=== PATIENT | female | born 1980 | race African-American/Black ===

== ENCOUNTER 2016-08-08 07:51 | Emergency (ER) | payer SELFPAY ==
[2016-08-08] MEDS ORDERED: ONDANSETRON 4 MG/2 ML VIAL IVP STA (08:20)
[2016-08-08] MEDS ORDERED: SODIUM CHLORIDE 0.9% 1,000 ML IV STA ×2 (08:20)
--- NOTE | 2016-08-08 08:25 | ED ---
General Adult HPI - General Chief complaint: Vaginal Bleeding Stated complaint: vaginal bleeding Time Seen by Provider: 08/08/16 08:12 Source: patient, RN notes reviewed Mode of arrival: ambulatory Limitations: no limitations - History of Present Illness Initial comments: Patient is a 36-year-old female who presents emergency room today with a chief complaint of vaginal bleeding. She states that she's gone through 3 tampons in the last hour. She states she's not due for her menstrual cycle for 1 week. She states this is much heavier bleeding than is typical for her. She admits that she does feel tired and has some lower abdominal cramping. Patient admits to an episode of nausea vomiting at work prior to arrival. Patient denies any recent fever, chills, shortness of breath, chest pain, back pain, numbness or tingling, dysuria or hematuria, constipation or diarrhea, headaches or visual changes, or any other complaints. - Related Data Home Medications Medication Instructions Recorded Confirmed No Known Home Medications [No 09/23/15 08/08/16 Known Home Medications] Allergies Allergy/AdvReac Type Severity Reaction Status Date / Time latex AdvReac Rash/Hives Verified 08/08/16 08:08 Review of Systems ROS Statement: Those systems with pertinent positive or pertinent negative responses have been documented in the HPI. ROS Other: All systems not noted in ROS Statement are negative. Past Medical History Additional Past Medical History / Comment(s): heart murmur History of Any Multi-Drug Resistant Organisms: None Reported Past Surgical History: Tubal Ligation Past Psychological History: No Psychological Hx Reported Smoking Status: Never smoker Past Alcohol Use History: Occasional Past Drug Use History: None Reported General Exam - General Exam Comments Initial Comments: General: The patient is awake and alert, in no distress, and does not appear acutely ill. Eye: Pupils are equal, round and reactive to light, extra-ocular movements are intact. No nystagmus. There is normal conjunctiva bilaterally. No signs of icterus. Ears, nose, mouth and throat: There are moist mucous membranes and no oral lesions. Neck: The neck is supple, there is no tenderness or JVD. Cardiovascular: There is a regular rate and rhythm. No murmur, rub or gallop is appreciated. Respiratory: Lungs are clear to auscultation, respirations are non-labored, breath sounds are equal. No wheezes, stridor, rales, or rhonchi. Gastrointestinal: Soft, non-distended, non-tender abdomen without masses or organomegaly noted. There is no rebound or guarding present. No CVA tenderness. Bowel sounds are unremarkable. Musculoskeletal: Normal ROM, no tenderness. Strength 5/5. Sensation intact. Pulses equal bilaterally 2+. Neurological: A&O x 3. CN II-XII intact, There are no obvious motor or sensory deficits. Coordination appears grossly intact. Speech is normal. Skin: Skin is warm and dry and no rashes or lesions are noted. Psychiatric: Cooperative, appropriate mood & affect, normal judgment. Limitations: no limitations Course Vital Signs 08/08/16 07:54 Temperature 97.7 F Pulse Rate 62 Respiratory 15 Rate Blood Pressure 133/73 O2 Sat by Pulse 100 Oximetry Medical Decision Making - Medical Decision Making Patient's ultrasound reviewed and does show thickened endometrial stripe at 1.5 cm. Patient's abdominal pain minimal in the lower abdomen. Good arterial flow both sides. Patient's labs reviewed are unremarkable. Was discussed with patient about following up with [facility]. At this time vitals stable hemoglobin stable. Patient will be discharged home. Signs and symptoms of return were discussed with the patient. Advised to return if any increase or worsening symptoms. She states understanding and is in agreement. - Lab Data Result diagrams: 08/08/16 08:50 08/08/16 08:50 Lab Results 08/08/16 08/08/16 08/08/16 Range/Units 08:40 08:40 08:50 WBC 3.8 (3.8-10.6) k/uL RBC 4.43 (3.80-5.40) m/uL Hgb 12.0 (11.4-16.0) gm/dL Hct 38.4 (34.0-46.0) % MCV 86.7 (80.0-100.0) fL MCH 27.2 (25.0-35.0) pg MCHC 31.3 (31.0-37.0) g/dL RDW 13.1 (11.5-15.5) % Plt Count 222 (150-450) k/uL Neutrophils % 50 % Lymphocytes % 40 % Monocytes % 5 % Eosinophils % 2 % Basophils % 0 % Neutrophils # 1.9 (1.3-7.7) k/uL Lymphocytes # 1.5 (1.0-4.8) k/uL Monocytes # 0.2 (0-1.0) k/uL Eosinophils # 0.1 (0-0.7) k/uL Basophils # 0.0 (0-0.2) k/uL PT (9.0-12.0) sec INR (<1.1) APTT (22.0-30.0) sec Sodium (137-145) mmol/L Potassium (3.5-5.1) mmol/L Chloride (98-107) mmol/L Carbon Dioxide (22-30) mmol/L Anion Gap mmol/L BUN (7-17) mg/dL Creatinine (0.52-1.04) mg/dL Est GFR (MDRD) Af Amer (>60 ml/min/1.73 sqM) Est GFR (MDRD) Non-Af (>60 ml/min/1.73 sqM) Glucose (74-99) mg/dL Calcium (8.4-10.2) mg/dL Total Bilirubin (0.2-1.3) mg/dL AST (14-36) U/L ALT (9-52) U/L Alkaline Phosphatase (38-126) U/L Total Protein (6.3-8.2) g/dL Albumin (3.5-5.0) g/dL Urine Color Yellow Urine Appearance Clear (Clear) Urine pH 5.0 (5.0-8.0) Ur Specific Bruno 1.021 (1.001-1.035) Urine Protein Trace H (Negative) Urine Glucose (UA) Negative (Negative) Urine Ketones Negative (Negative) Urine Blood Moderate H (Negative) Urine Nitrate Negative (Negative) Urine Bilirubin Negative (Negative) Urine Urobilinogen <2.0 (<2.0) mg/dL Ur Leukocyte Esterase Negative (Negative) Urine RBC 20 H (0-5) /hpf Urine WBC 2 (0-5) /hpf Ur Squamous Epith Cells 2 (0-4) /hpf Urine Mucus Rare H (None) /hpf Urine HCG, Qual Not Detected (Not Detectd) 08/08/16 08/08/16 Range/Units 08:50 08:50 WBC (3.8-10.6) k/uL RBC (3.80-5.40) m/uL Hgb (11.4-16.0) gm/dL Hct (34.0-46.0) % MCV (80.0-100.0) fL MCH (25.0-35.0) pg MCHC (31.0-37.0) g/dL RDW (11.5-15.5) % Plt Count (150-450) k/uL Neutrophils % % Lymphocytes % % Monocytes % % Eosinophils % % Basophils % % Neutrophils # (1.3-7.7) k/uL Lymphocytes # (1.0-4.8) k/uL Monocytes # (0-1.0) k/uL Eosinophils # (0-0.7) k/uL Basophils # (0-0.2) k/uL PT 10.9 (9.0-12.0) sec INR 1.1 (<1.1) APTT 25.5 (22.0-30.0) sec Sodium 142 (137-145) mmol/L Potassium 4.2 (3.5-5.1) mmol/L Chloride 109 H (98-107) mmol/L Carbon Dioxide 23 (22-30) mmol/L Anion Gap 10 mmol/L BUN 9 (7-17) mg/dL Creatinine 0.65 (0.52-1.04) mg/dL Est GFR (MDRD) Af Amer >60 (>60 ml/min/1.73 sqM) Est GFR (MDRD) Non-Af >60 (>60 ml/min/1.73 sqM) Glucose 72 L (74-99) mg/dL Calcium 8.5 (8.4-10.2) mg/dL Total Bilirubin 0.3 (0.2-1.3) mg/dL AST 19 (14-36) U/L ALT 30 (9-52) U/L Alkaline Phosphatase 56 (38-126) U/L Total Protein 6.5 (6.3-8.2) g/dL Albumin 3.7 (3.5-5.0) g/dL Urine Color Urine Appearance (Clear) Urine pH (5.0-8.0) Ur Specific Bruno (1.001-1.035) Urine Protein (Negative) Urine Glucose (UA) (Negative) Urine Ketones (Negative) Urine Blood (Negative) Urine Nitrate (Negative) Urine Bilirubin (Negative) Urine Urobilinogen (<2.0) mg/dL Ur Leukocyte Esterase (Negative) Urine RBC (0-5) /hpf Urine WBC (0-5) /hpf Ur Squamous Epith Cells (0-4) /hpf Urine Mucus (None) /hpf Urine HCG, Qual (Not Detectd) Disposition Clinical Impression: Dysfunctional uterine bleeding Disposition: HOME SELF-CARE Condition: Good Instructions: Dysfunctional Uterine Bleeding (ED) Additional Instructions: Please follow-up with the family doctor or [facility] over the next 2 days. Please return to emergency room if any symptoms increase or worsen or for any other concerns as discussed. Referrals: Niharika Manrique MD [Primary Care Provider] - 1-2 days Mikayla Montiel DO [Doctor of Osteopathic Medicine] - 1-2 days Time of Disposition: 09:52
[2016-08-08 08:52] LABS: Appearance,Urine Clear (Clear); Bilirubin,Urine Negative (Negative); Glucose,Urine (UA) Negative (Negative); Ketones,Urine Negative (Negative); Leukocyte Esterase,Urine Negative (Negative); Mucus,Urine Rare /hpf; Nitrite,Urine Negative (Negative); Particle Count 4581; Protein,Urine Trace (Negative); RBC,Urine 20 /hpf (0-5); Specific Gravity,Urine 1.021 (1.001-1.035); Squamous Epithelial Cell,Urine 2 /hpf (0-4); UA Billing (MACRO vs. MICRO) MICRO; Urobilinogen,Urine <2.0 mg/dL (<2.0); WBC,Urine 2 /hpf (0-5)
[2016-08-08 09:04] LABS: Basophils % (A) 0 %; CH 27.3; CHCM 31.6; Eosinophils # (A) 0.1 k/uL (0-0.7); Eosinophils % (A) 2 %; HCT 38.4 % (34.0-46.0); HDW 2.32; Luc % (Auto) 3; Lymphocytes # (A) 1.5 k/uL (1.0-4.8); Lymphocytes % (A) 40 %; MCH 27.2 pg (25.0-35.0); MCHC 31.3 g/dL (31.0-37.0); MCV 86.7 fL (80.0-100.0); Mean Platelet Volume 7.5; Monocytes # (A) 0.2 k/uL (0-1.0); Monocytes % (A) 5 %; Neutrophils # (A) 1.9 k/uL (1.3-7.7); Neutrophils % (A) 50 %; RBC 4.43 m/uL (3.80-5.40); RDW 13.1 % (11.5-15.5); WBC 3.8 k/uL (3.8-10.6); WBC (Perox) 3.93
[2016-08-08 09:11] LABS: ALT 30 U/L (9-52); AST 19 U/L (14-36); Alkaline Phosphatase 56 U/L (38-126); Anion Gap 10 mmol/L; Blood Urea Nitrogen 9 mg/dL (7-17); Calcium 8.5 mg/dL (8.4-10.2); Carbon Dioxide 23 mmol/L (22-30); Chloride 109 mmol/L (98-107); Glucose 72 mg/dL (74-99); Non-African American GFR(MDRD) >60 (>60 ml/min/1.73 sqM); Potassium 4.2 mmol/L (3.5-5.1); Sodium 142 mmol/L (137-145); Total Bilirubin 0.3 mg/dL (0.2-1.3); Total Protein 6.5 g/dL (6.3-8.2)
[2016-08-08 09:13] LABS: INR 1.1 (<1.1); Partial Thromboplastin Time 25.5 sec (22.0-30.0); Prothrombin Time 10.9 sec (9.0-12.0)
--- NOTE | 2016-08-08 09:47 | US ---
EXAMINATION TYPE: US transvaginal plus Dopplers DATE OF EXAM: 08/08/2016 9:14 AM COMPARISON: No previous CLINICAL HISTORY: 36-year-old female pain. Pelvic pain, with nausea, vomiting, heavy bleeding and [place] clots x 1 day, history of tubal ligation, 4, para 4 Date of LMP: 07/16/16 TECHNIQUE: Multiple transvaginal sonographic images of the pelvis were obtained. Color Doppler and s pectral waveform analysis of the ovarian arteries. FINDINGS: Uterus: Anteverted measuring 9.5 x 4.3 x 5.7 cm. Cervical nabothian cysts are present. Endometrial Stripe: 1.5 cm, thickened, should correspond to the late secretory phase of the menstrual cycle. Right Ovary: 3.1 x 2.1 x 2.1 cm 4 volume of 6.9 mL. Follicular change is present. Left Ovary: 2.8 x 1.2 x 1.7 cm for volume of 2.9 mL. Follicular change is present. The production control analyst shows satisfactory arterial flow on both sides. Unable to obtain venous flow in the o varies. No evidence of adnexal abnormality or cul-de-sac free fluid. IMPRESSION: 1. Normal-sized ovaries with follicular change on both sides. Arterial flow is present bilaterally. U nable to detect venous flow probably on a technical basis. There are no morphologic changes of ovaria n torsion at this time. Follow-up as clinically indicated. 2. Thickening of the endometrial stripe corresponds to the late secretory phase of the menstrual cycl e. 3. No pelvic free fluid.
[2016-08-08 10:10] VITALS: BP 132/77; PULSE 74; RESP 18; TEMP 97.3
== END 2016-08-08 10:10 | disposition home or self-care (01) ==
LOC: EC 07:51
DX: N93.8 Other specified abnormal uterine and vaginal bleeding (principal); R11.2 Nausea with vomiting, unspecified; R10.9 Unspecified abdominal pain; Z91.040 Latex allergy status
CPT/HCPCS: 36415; 80053; 85025; 85610; 85730; 81001; 81025; 93976; 76830; 99284; 96374; J2405

== ENCOUNTER 2018-02-19 03:06 | Emergency (ER) | payer OTHER ==
[2018-02-19 03:17] VITALS: BP 131/81; PULSE 63; TEMP 98.2
--- NOTE | 2018-02-19 03:28 | ED ---
General Adult HPI - General Chief complaint: Allergic Reaction Stated complaint: [facility]-allergic RX Time Seen by Provider: 02/19/18 03:19 Source: patient Mode of arrival: ambulatory Limitations: no limitations - History of Present Illness Initial comments: Marcie is a 37-year-old female who presents the emergency department for evaluation of irritation to her left forearm. Patient ports that she works in a [employer], this week they have been mirza jalapenos. 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 She reports she's had exposure jalapenos and jalapeno juice as well as the brine they are in on her bilateral arms. She states that on Friday she noted some redness and burning to her left forearm, she took Benadryl and this resolved. Patient reports that she turned to work on Friday and was again exposed to the jalapenos. On Friday night she developed a rash of her left arm and some Benadryl, again on Friday she was exposed to jalapenos she took 2 doses of Benadryl and had persistent burning and rash of her left arm which prompted her to come to the ER for evaluation. Patient denies any shortness of breath, chest tightness, GI upset. She did not eat any of the jalapenos. Patient states that she has never been jalapenos before and was unwell aware that she had any type of ALLERGY - Related Data Home Medications Medication Instructions Recorded Confirmed No Known Home Medications 09/23/15 08/08/16 Allergies Allergy/AdvReac Type Severity Reaction Status Date / Time latex AdvReac Rash/Hives Verified 02/19/18 03:17 Review of Systems ROS Statement: Those systems with pertinent positive or pertinent negative responses have been documented in the HPI. ROS Other: All systems not noted in ROS Statement are negative. Past Medical History Additional Past Medical History / Comment(s): heart murmur History of Any Multi-Drug Resistant Organisms: None Reported Past Surgical History: Tubal Ligation Past Psychological History: No Psychological Hx Reported Smoking Status: Never smoker Past Alcohol Use History: Occasional Past Drug Use History: None Reported General Exam Limitations: no limitations Course Vital Signs 02/19/18 02/19/18 03:14 04:09 Temperature 98.2 F Pulse Rate 63 Respiratory 16 17 Rate Blood Pressure 131/81 O2 Sat by Pulse 100 Oximetry Medical Decision Making - Medical Decision Making Patient was seen and evaluated, history was obtained from the patient Patient's history and physical exam are consistent with contact dermatitis, secondary to contact with jalapeno At this time there is no signs of an ALLERGIC reaction symptomatic treatment was discussed with the patient Patient can wear sleeves at work which perfect contact, however she states that they are made of plastic or rubber cause her to swell which is also uncomfortable, advised the patient that she should likely rabies sleeves. Or asked for reassignment. All questions pertaining to care were answered to the best of my ability the patient was discharged home in stable condition Disposition Clinical Impression: Contact dermatitis Disposition: HOME SELF-CARE Instructions: Contact Dermatitis (ED) Is patient prescribed a controlled substance at d/c from ED?: No Referrals: Niharika Manrique MD [Primary Care Provider] - 1-2 days Time of Disposition: 03:28
[2018-02-19 04:10] VITALS: RESP 17
== END 2018-02-19 04:10 | disposition home or self-care (01) ==
LOC: EC 03:06
DX: L25.9 Unspecified contact dermatitis, unspecified cause (principal); Z91.040 Latex allergy status
CPT/HCPCS: 99283

== ENCOUNTER 2019-03-02 10:48 | Emergency (ER) | payer OTHER ==
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
--- NOTE | 2019-03-02 11:41 | CT ---
EXAMINATION TYPE: CT brain wo con DATE OF EXAM: 03/02/2019 COMPARISON: None. HISTORY: Head injury with laceration and headache. CT DLP: 1072.7 mGycm. Automated Exposure Control for Dose Reduction was Utilized. TECHNIQUE: CT scan of the head is performed without contrast. FINDINGS: There is no acute intracranial hemorrhage, mass effect, or midline shift identified. The ventricles and sulci are within normal limits in size. Dooley-white matter differentiation is maintain ed. The globes are intact and the visualized sinuses are clear. The calvarium is intact. IMPRESSION: No acute intracranial hemorrhage, mass effect, or midline shift is seen.
[2019-03-02 12:10] VITALS: BP 143/99; PULSE 70; RESP 17; TEMP 99
== END 2019-03-02 12:09 | disposition home or self-care (01) ==
LOC: EC 10:48
DX: S01.01XA Laceration without foreign body of scalp, initial encounter (principal); Z91.040 Latex allergy status; W22.8XXA Striking against or struck by other objects, initial encounter; Y93.89 Activity, other specified; Y92.009 Unspecified place in unspecified non-institutional (private) residence as the place of occurrence of the external cause
CPT/HCPCS: 70450; 99283

== ENCOUNTER 2019-07-17 13:47 | Emergency (ER) | payer OTHER ==
[2019-07-17 14:06] VITALS: BP 143/85; PULSE 51; RESP 16; TEMP 98.1
--- NOTE | 2019-07-17 14:35 | ED ---
General Adult HPI - General Chief complaint: Skin/Abscess/Foreign Body Stated complaint: Abscess Time Seen by Provider: 07/17/19 14:16 Source: patient, RN notes reviewed, old records reviewed Mode of arrival: ambulatory Limitations: no limitations - History of Present Illness Initial comments: Patient is a 39 year old female, works at [employer] with complaints of reswelling behind knee after lanza cyst was drained by ortho 3 weeks ago. She reports she stands for long times at work. She has had increasing pain over the past week. Her ortho that drained it was towards [place], she does not remember the name. She denies erythema or calf pain. She denies breaks in the skin. She reports full ROM of knee. - Related Data Previous Rx's Medication Instructions Recorded Ibuprofen [Motrin] 600 mg PO Q6HR PRN #20 tab 07/17/19 Allergies Allergy/AdvReac Type Severity Reaction Status Date / Time latex Allergy Rash/Hives Verified 07/17/19 14:04 Review of Systems ROS Statement: Those systems with pertinent positive or pertinent negative responses have been documented in the HPI. ROS Other: All systems not noted in ROS Statement are negative. Past Medical History Additional Past Medical History / Comment(s): heart murmur History of Any Multi-Drug Resistant Organisms: None Reported Past Surgical History: Tubal Ligation Past Psychological History: No Psychological Hx Reported Smoking Status: Never smoker Past Alcohol Use History: Occasional Past Drug Use History: None Reported General Exam - General Exam Comments Initial Comments: 39 year old female, no distress. Limitations: no limitations General appearance: alert, in no apparent distress Head exam: Present: atraumatic, normocephalic, normal inspection Eye exam: Present: normal appearance, PERRL, EOMI. Absent: scleral icterus, conjunctival injection, periorbital swelling ENT exam: Present: normal exam, mucous membranes moist Neck exam: Present: normal inspection. Absent: tenderness, meningismus, lymphadenopathy Respiratory exam: Present: normal lung sounds bilaterally. Absent: respiratory distress, wheezes, rales, rhonchi, stridor Cardiovascular Exam: Present: regular rate, normal rhythm, normal heart sounds. Absent: systolic murmur, diastolic murmur, rubs, gallop, clicks Extremities exam: Present: normal inspection, full ROM, normal capillary refill, other (evidence of lanza cyst behind R knee. No erythema. No calf swelling, Full roM of knee. ). Absent: tenderness, pedal edema, joint swelling, calf tenderness Back exam: Present: normal inspection Neurological exam: Present: alert, oriented X3, CN II-XII intact Psychiatric exam: Present: normal affect, normal mood Skin exam: Present: warm, dry, intact, normal color. Absent: rash Course Vital Signs 07/17/19 14:03 Temperature 98.1 F Pulse Rate 51 L Respiratory 16 Rate Blood Pressure 143/85 O2 Sat by Pulse 100 Oximetry Medical Decision Making - Medical Decision Making 39 year old femael with reswelling over Lanza cyst after it was drained 3 weeks ago by ortho. Discussed she needs to have ortho drain the cyst. This is made worse by standing for long times on hard surface. Discussed she can use LITO wrap and use antiinflammatory medication. Discussed no drainage for this in ED. Disposition Clinical Impression: Lazna cyst Disposition: HOME SELF-CARE Condition: Good Instructions (If sedation given, give patient instructions): Bakers Cyst (ED) Additional Instructions: Patient advised to use the Lito wrap, rest ice and elevate the knee. Follow-up with health specialist again. Return to the emergency department if any alarming signs or symptoms occur. Prescriptions: Ibuprofen [Motrin] 600 mg PO Q6HR PRN #20 tab PRN Reason: Pain Is patient prescribed a controlled substance at d/c from ED?: No Referrals: None,Stated [Primary Care Provider] - 1-2 days Juliet Alcantara DO [Doctor of Osteopathic Medicine] - 1-2 days Time of Disposition: 14:33
== END 2019-07-17 14:45 | disposition home or self-care (01) ==
LOC: EC 13:47
DX: M71.21 Synovial cyst of popliteal space [Baker], right knee (principal); Z91.040 Latex allergy status
CPT/HCPCS: 99283

== ENCOUNTER 2019-10-03 21:53 | Emergency (ER) | payer OTHER ==
[2019-10-03 22:01] VITALS: TEMP 98
[2019-10-03 22:15] LABS: Appearance,Urine Clear (Clear); Bilirubin,Urine Negative (Negative); Blood,Urine Moderate (Negative); Color,Urine Light Yellow; Glucose,Urine (UA) Negative (Negative); Ketones,Urine Negative (Negative); Leukocyte Esterase,Urine Negative (Negative); Mucus,Urine Rare /hpf; Nitrite,Urine Negative (Negative); Protein,Urine Negative (Negative); RBC,Urine 2 /hpf (0-5); Squamous Epithelial Cell,Urine 1 /hpf (0-4); Urobilinogen,Urine <2.0 mg/dL (<2.0); WBC,Urine 2 /hpf (0-5)
[2019-10-03 22:25] LABS: Basophils % (A) 1 %; Eosinophils # (A) 0.1 k/uL (0-0.7); Eosinophils % (A) 1 %; HCT 40.7 % (34.0-46.0); HGB 12.9 gm/dL (11.4-16.0); Lymphocytes # (A) 2.4 k/uL (1.0-4.8); Lymphocytes % (A) 33 %; MCH 27.3 pg (25.0-35.0); MCHC 31.6 g/dL (31.0-37.0); MCV 86.6 fL (80.0-100.0); Mean Platelet Volume 8.1; Monocytes # (A) 0.3 k/uL (0-1.0); Monocytes % (A) 5 %; Neutrophils # (A) 4.3 k/uL (1.3-7.7); Neutrophils % (A) 59 %; Platelet Count 238 k/uL (150-450); RDW 13.2 % (11.5-15.5); WBC 7.3 k/uL (3.8-10.6)
[2019-10-03 22:38] LABS: ALT 19 U/L (4-34); AST 22 U/L (14-36); African American GFR (CKD) >90 (>60 ml/min/1.73 sqM); Albumin 4.8 g/dL (3.5-5.0); Alkaline Phosphatase 70 U/L (38-126); Anion Gap 8 mmol/L; Blood Urea Nitrogen 18 mg/dL (7-17); Calcium 9.4 mg/dL (8.4-10.2); Carbon Dioxide 29 mmol/L (22-30); Chloride 101 mmol/L (98-107); Glucose 100 mg/dL (74-99); Non-African American GFR(CKD) >90 (>60 ml/min/1.73 sqM); Potassium 4.3 mmol/L (3.5-5.1); Sodium 138 mmol/L (137-145); Total Bilirubin 0.2 mg/dL (0.2-1.3); Total Protein 8.1 g/dL (6.3-8.2)
[2019-10-03 22:54] LABS: HCG,Quantitative Serum <2.4 mIU/mL
--- NOTE | 2019-10-03 22:59 | ED ---
General Adult HPI - General Chief complaint: Urogenital Stated complaint: Hematuria Time Seen by Provider: 10/03/19 22:06 Source: patient, RN notes reviewed, old records reviewed Mode of arrival: ambulatory Limitations: no limitations - History of Present Illness Initial comments: 39-year-old female patient presents to ED for evaluation of hematuria. Patient does report that she had a tubal ligation approximately 15 years ago. She reports that today she has been having blood in her urine. Pt also reports that she is sexually active, she took a test earlier today and it was reportedly positive. She then presented to emergency department. She denies any pain at this time. Denies any other complaints. Denies any fevers, exposure coronavirus. Systemic: Pt denies fatigue, fever/chills, rash. Pt denies weakness, night sweats, weight loss. Neuro: Pt denies headache, visual disturbances, syncope or pre-syncope. HEENT: Pt denies ocular discharge or irritation, otalgia, rhinorrhea, pharyngitis or notable lymphadenopathy. Cardiopulmonary: Pt denies chest pain, SOB, heart palpitations, dyspnea on exertion. Abdominal/GI: Pt denies abdominal pain, n/v/d. : Pt denies dysuria, burning w/ urination, frequency/urgency. Denies new onset urinary or bowel incontinence. MSK: Pt denies myalgia, loss of strength or function in extremities. Neuro: Pt denies new onset weakness, paresthesias. - Related Data Previous Rx's Medication Instructions Recorded Ibuprofen [Motrin] 600 mg PO Q6HR PRN #20 tab 07/17/19 Allergies Allergy/AdvReac Type Severity Reaction Status Date / Time latex Allergy Rash/Hives Verified 10/03/19 22:01 Review of Systems ROS Statement: Those systems with pertinent positive or pertinent negative responses have been documented in the HPI. ROS Other: All systems not noted in ROS Statement are negative. Past Medical History Additional Past Medical History / Comment(s): heart murmur History of Any Multi-Drug Resistant Organisms: None Reported Past Surgical History: Tubal Ligation Past Psychological History: No Psychological Hx Reported Smoking Status: Never smoker Past Alcohol Use History: Occasional Past Drug Use History: None Reported General Exam - General Exam Comments Initial Comments: Constitutional: NAD, AOX3, Pt has pleasant affect. HEENT: NC/AT, trachea midline, neck supple, no lymphadenopathy. Posterior pharynx non erythematous, without exudates. External ears appear normal, without discharge. Mucous membranes moist. Eyes PERRLA, EOM intact. There is no scleral icterus. No pallor noted. Cardiopulmonary: RRR, no murmurs, rubs or gallops, no JVD noted. Lungs CTAB in anterior and posterior mae. No peripheral edema. Abdominal exam: Abdomen soft and non-distended. Abdomen non-tender to palpation in all 4 quadrants. Bowel sounds active in LLQ. No hepatosplenomegaly. No ecchymosis Neuro: CN II-XII grossly intact. No nuchal rigidity. No raccon eyes, no phan sign, no hemotympanum. No cervical spinal tenderness. MSK: Posterior tibialis and radial pulse +2 bilaterally. Sensation intact in upper and lower extremities. Full active ROM in upper and lower extremities, 5/5 stregnth. Limitations: no limitations Course Vital Signs 10/03/19 21:57 Temperature 98 F Pulse Rate 58 L Respiratory 18 Rate Blood Pressure 172/98 O2 Sat by Pulse 99 Oximetry Medical Decision Making - Medical Decision Making 39-year-old female patient presents to ED for evaluation of hematuria. Patient does report that she had a tubal ligation approximately 15 years ago. She reports that today she has been having blood in her urine. Pt also reports that she is sexually active, she took a test earlier today and it was reportedly positive. She then presented to emergency department. She denies any pain at this time. Denies any other complaints. Denies any fevers, exposure coronavirus. Patient felt and are stable, afebrile. Physical exam did not display acute pathology. Abdomen soft and nontender. Due to concern for possible a friend that ultrasound was ordered. Laboratory investigations were obtained, these were nonimmpressive, hCG is found to be negative. 2 red blood cells in urine. Hemoglobin 12.9. Transvaginal ultrasound displayed posterior uterine fundal fibroid small. Patient will be discharged with outpatient primary care follow-up. Return to ER if condition worsens. Case discussed with Dr. Vela. - Lab Data Result diagrams: 10/03/19 22:18 10/03/19 22:18 Lab Results 10/03/19 10/03/19 10/03/19 Range/Units 22:10 22:10 22:18 WBC 7.3 (3.8-10.6) k/uL RBC 4.70 (3.80-5.40) m/uL Hgb 12.9 (11.4-16.0) gm/dL Hct 40.7 (34.0-46.0) % MCV 86.6 (80.0-100.0) fL MCH 27.3 (25.0-35.0) pg MCHC 31.6 (31.0-37.0) g/dL RDW 13.2 (11.5-15.5) % Plt Count 238 (150-450) k/uL Neutrophils % 59 % Lymphocytes % 33 % Monocytes % 5 % Eosinophils % 1 % Basophils % 1 % Neutrophils # 4.3 (1.3-7.7) k/uL Lymphocytes # 2.4 (1.0-4.8) k/uL Monocytes # 0.3 (0-1.0) k/uL Eosinophils # 0.1 (0-0.7) k/uL Basophils # 0.0 (0-0.2) k/uL Sodium (137-145) mmol/L Potassium (3.5-5.1) mmol/L Chloride (98-107) mmol/L Carbon Dioxide (22-30) mmol/L Anion Gap mmol/L BUN (7-17) mg/dL Creatinine (0.52-1.04) mg/dL Est GFR (CKD-EPI)AfAm (>60 ml/min/1.73 sqM) Est GFR (CKD-EPI)NonAf (>60 ml/min/1.73 sqM) Glucose (74-99) mg/dL Calcium (8.4-10.2) mg/dL Total Bilirubin (0.2-1.3) mg/dL AST (14-36) U/L ALT (4-34) U/L Alkaline Phosphatase (38-126) U/L Total Protein (6.3-8.2) g/dL Albumin (3.5-5.0) g/dL HCG, Quant mIU/mL Urine Color Light Yellow Urine Appearance Clear (Clear) Urine pH 6.0 (5.0-8.0) Ur Specific [place] 1.010 (1.001-1.035) Urine Protein Negative (Negative) Urine Glucose (UA) Negative (Negative) Urine Ketones Negative (Negative) Urine Blood Moderate H (Negative) Urine Nitrite Negative (Negative) Urine Bilirubin Negative (Negative) Urine Urobilinogen <2.0 (<2.0) mg/dL Ur Leukocyte Esterase Negative (Negative) Urine RBC 2 (0-5) /hpf Urine WBC 2 (0-5) /hpf Ur Squamous Epith Cells 1 (0-4) /hpf Urine Mucus Rare H (None) /hpf Urine HCG, Qual Not Detected (Not Detectd) 10/03/19 Range/Units 22:18 WBC (3.8-10.6) k/uL RBC (3.80-5.40) m/uL Hgb (11.4-16.0) gm/dL Hct (34.0-46.0) % MCV (80.0-100.0) fL MCH (25.0-35.0) pg MCHC (31.0-37.0) g/dL RDW (11.5-15.5) % Plt Count (150-450) k/uL Neutrophils % % Lymphocytes % % Monocytes % % Eosinophils % % Basophils % % Neutrophils # (1.3-7.7) k/uL Lymphocytes # (1.0-4.8) k/uL Monocytes # (0-1.0) k/uL Eosinophils # (0-0.7) k/uL Basophils # (0-0.2) k/uL Sodium 138 (137-145) mmol/L Potassium 4.3 (3.5-5.1) mmol/L Chloride 101 (98-107) mmol/L Carbon Dioxide 29 (22-30) mmol/L Anion Gap 8 mmol/L BUN 18 H (7-17) mg/dL Creatinine 0.74 (0.52-1.04) mg/dL Est GFR (CKD-EPI)AfAm >90 (>60 ml/min/1.73 sqM) Est GFR (CKD-EPI)NonAf >90 (>60 ml/min/1.73 sqM) Glucose 100 H (74-99) mg/dL Calcium 9.4 (8.4-10.2) mg/dL Total Bilirubin 0.2 (0.2-1.3) mg/dL AST 22 (14-36) U/L ALT 19 (4-34) U/L Alkaline Phosphatase 70 (38-126) U/L Total Protein 8.1 (6.3-8.2) g/dL Albumin 4.8 (3.5-5.0) g/dL HCG, Quant <2.4 mIU/mL Urine Color Urine Appearance (Clear) Urine pH (5.0-8.0) Ur Specific [place] (1.001-1.035) Urine Protein (Negative) Urine Glucose (UA) (Negative) Urine Ketones (Negative) Urine Blood (Negative) Urine Nitrite (Negative) Urine Bilirubin (Negative) Urine Urobilinogen (<2.0) mg/dL Ur Leukocyte Esterase (Negative) Urine RBC (0-5) /hpf Urine WBC (0-5) /hpf Ur Squamous Epith Cells (0-4) /hpf Urine Mucus (None) /hpf Urine HCG, Qual (Not Detectd) Disposition Clinical Impression: Hematuria, Fibroid Disposition: HOME SELF-CARE Condition: Stable Instructions (If sedation given, give patient instructions): Hematuria (ED) Additional Instructions: Follow-up with primary care provider tomorrow. Return to ER if condition worsens in any way. Have blood pressure recheck by PCP. Is patient prescribed a controlled substance at d/c from ED?: No Referrals: None,Stated [Primary Care Provider] - 1-2 days Niharika Manrique MD [REFERRING] - 1-2 days
--- NOTE | 2019-10-03 23:12 | US ---
EXAMINATION TYPE: US transvaginal DATE OF EXAM: 10/03/2019 COMPARISON: US 08/08/2016, CT 07/30/2013 CLINICAL HISTORY: rule out ectopic. Negative Hcg, patient states positive home test. Tubal ligation TECHNIQUE: . Transvaginal sonographic images of the pelvis were acquired Date of LMP: Unsure EXAM MEASUREMENTS: Uterus: 9.5 x 4.5 x 5.0 cm Endometrial Stripe: 0.5 cm Right Ovary: 2.8 x 1.8 x 2.0 cm Left Ovary: 2.4 x 1.4 x 1.5 cm 1. Uterus: Anteverted Heterogeneous. Hypoechoic area measuring 1.4 cm, probable fibroid. 2. Endometrium: wnl 3. Right Ovary: Complex area measuring 1.3 cm, possible hemorrhagic cyst 4. Left Ovary: wnl Spectral, color and waveform doppler imaging shows good arterial and venous flow within the ovaries ; there is no evidence for ovarian torsion. 5. Bilateral Adnexa: wnl 6. Posterior cul-de-sac: wnl IMPRESSION: Normal endometrium. Posterior uterine fundal small fibroid. No evidence of ovarian torsion. No adnexal mass. No free fluid.
[2019-10-03 23:32] VITALS: BP 155/89; PULSE 59; RESP 16
== END 2019-10-03 23:33 | disposition home or self-care (01) ==
LOC: EC 21:53
DX: D25.9 Leiomyoma of uterus, unspecified (principal); R31.9 Hematuria, unspecified; Z32.02 Encounter for pregnancy test, result negative; Z91.040 Latex allergy status; Z98.51 Tubal ligation status
CPT/HCPCS: 36415; 76830; 80053; 81001; 81025; 84702; 85025; 93975; 99284

== ENCOUNTER 2020-01-08 05:14 | Emergency (ER) | payer OTHER ==
[2020-01-08 05:26] VITALS: BP 125/76; PULSE 60; RESP 20; TEMP 98.4
--- NOTE | 2020-01-08 06:18 | XR ---
EXAMINATION TYPE: XR ankle complete LT DATE OF EXAM: 01/08/2020 COMPARISON: NONE HISTORY: Ankle pain TECHNIQUE: 3 views FINDINGS: Ankle mortise is anatomic. I see no fracture nor dislocation. Joint spaces are normal. IMPRESSION: Negative left ankle exam.
--- NOTE | 2020-01-08 06:19 | XR ---
EXAMINATION TYPE: XR tibia fibula LT DATE OF EXAM: 01/08/2020 COMPARISON: NONE HISTORY: Pain TECHNIQUE: 2 views FINDINGS: Tibia and fibula appear intact. I see no fracture nor dislocation. Soft tissues appear norm al. IMPRESSION: Negative left tibia and fibula exam.
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
== END 2020-01-08 06:45 | disposition home or self-care (01) ==
LOC: EC 05:14
DX: S80.12XA Contusion of left lower leg, initial encounter (principal); Z91.040 Latex allergy status; V49.50XA Passenger injured in collision with unspecified motor vehicles in traffic accident, initial encounter; Y92.410 Unspecified street and highway as the place of occurrence of the external cause; Y93.89 Activity, other specified
CPT/HCPCS: 99284

== ENCOUNTER 2020-04-26 14:24 | Emergency (ER) | payer OTHER ==
[2020-04-26 14:35] VITALS: TEMP 97.9
[2020-04-26] MEDS ORDERED: KETOROLAC 15 MG/ML 1 ML VIAL IVP STA (14:47)
--- NOTE | 2020-04-26 14:58 | ED ---
General Adult HPI - General Chief complaint: Chest Pain Stated complaint: chest pain Time Seen by Provider: 04/26/20 14:41 Source: patient, RN notes reviewed Mode of arrival: ambulatory Limitations: no limitations - History of Present Illness Initial comments: 39-year-old female with a past medical history of heart murmur, tubal ligation presents to the emergency room for a chief complaint of chest pain. Patient reports that for 2 days she has had sharp chest pain in the left side of her chest that radiates to her left shoulder. Patient states that breathing out seems to worsen this. Patient denies sitting up or laying back worsening this. Denies anything making it better. Patient reports this started after she was mopping the floor and cleaning her house. Patient does admit that it hurts with certain movements of her left arm. Patient denies any associated shortness of breath.patient denies any history of smoking, hyperlipidemia, hypertension. Denies cardiac history aside from a murmur. Denies family history of HI or stroke. Patient has no other complaints at this time including shortness of breath, abdominal pain, nausea or vomiting, headache, or visual changes. - Related Data Home Medications Medication Instructions Recorded Confirmed No Known Home Medications 04/26/20 04/26/20 Allergies Allergy/AdvReac Type Severity Reaction Status Date / Time latex Allergy Rash/Hives Verified 04/26/20 15:55 Review of Systems ROS Statement: Those systems with pertinent positive or pertinent negative responses have been documented in the HPI. ROS Other: All systems not noted in ROS Statement are negative. Past Medical History Additional Past Medical History / Comment(s): heart murmur History of Any Multi-Drug Resistant Organisms: None Reported Past Surgical History: Tubal Ligation Past Psychological History: No Psychological Hx Reported Smoking Status: Never smoker Past Alcohol Use History: Occasional Past Drug Use History: None Reported General Exam Limitations: no limitations General appearance: alert, in no apparent distress Head exam: Present: atraumatic, normocephalic, normal inspection Eye exam: Present: normal appearance, PERRL, EOMI. Absent: scleral icterus, conjunctival injection, periorbital swelling ENT exam: Present: normal exam, mucous membranes moist Neck exam: Present: normal inspection, full ROM. Absent: tenderness, meningismus, lymphadenopathy Respiratory exam: Present: normal lung sounds bilaterally, chest wall tenderness (Patient has left-sided anterior chest wall tenderness.). Absent: respiratory distress, wheezes, rales, rhonchi, stridor Cardiovascular Exam: Present: regular rate, normal rhythm, normal heart sounds. Absent: systolic murmur, diastolic murmur, rubs, gallop, clicks GI/Abdominal exam: Present: soft, normal bowel sounds. Absent: distended, tenderness, guarding, rebound, rigid Back exam: Absent: CVA tenderness (R), CVA tenderness (L) Neurological exam: Present: alert Course Vital Signs 04/26/20 04/26/20 14:33 15:09 Temperature 97.9 F Pulse Rate 62 60 Respiratory 16 18 Rate Blood Pressure 124/77 122/80 O2 Sat by Pulse 100 100 Oximetry Medical Decision Making - Medical Decision Making Vitals are stable. HPI is consistent with atypical chest pain given pain is sharp in nature, pleuritic, reproducible to palpation, and worsens with movement of the left arm. This all started after patient did a deep cleaning of her hous e. She has no cardiac risk factors. CBC is unremarkable. CMP unremarkable. Troponin is negative. D-dimer is negative. EKG is nonischemic. Patient was given Toradol and had significant improvement in symptoms. At this time patient can be discharged home with anti-inflammatories. She will follow up with primary care. She will return here for any worsening symptoms which were discussed with her.I discussed this case with attending Dr. Jarvis who agrees with this assessment and treatment plan. Patient did have very slight elevation in lipase which was discussed with her. I do not think this is causing her symptoms given this is not 3 times normal limits and patient does not have epigastric tenderness or nausea vomiting. However she will follow-up with her doctor to repeat this level. - Lab Data Result diagrams: 04/26/20 14:58 04/26/20 14:58 Lab Results 04/26/20 04/26/20 04/26/20 Range/Units 14:58 14:58 14:58 WBC 4.0 (3.8-10.6) k/uL RBC 4.37 (3.80-5.40) m/uL Hgb 12.2 (11.4-16.0) gm/dL Hct 39.6 (34.0-46.0) % MCV 90.5 (80.0-100.0) fL MCH 27.8 (25.0-35.0) pg MCHC 30.7 L (31.0-37.0) g/dL RDW 13.2 (11.5-15.5) % Plt Count 244 (150-450) k/uL Neutrophils % 47 % Lymphocytes % 44 % Monocytes % 4 % Eosinophils % 3 % Basophils % 1 % Neutrophils # 1.9 (1.3-7.7) k/uL Lymphocytes # 1.8 (1.0-4.8) k/uL Monocytes # 0.2 (0-1.0) k/uL Eosinophils # 0.1 (0-0.7) k/uL Basophils # 0.0 (0-0.2) k/uL PT 10.4 (9.0-12.0) sec INR 1.0 (<1.2) APTT 23.5 (22.0-30.0) sec D-Dimer <0.17 (<0.60) mg/L FEU Sodium 137 (137-145) mmol/L Potassium 4.1 (3.5-5.1) mmol/L Chloride 105 (98-107) mmol/L Carbon Dioxide 27 (22-30) mmol/L Anion Gap 5 mmol/L BUN 13 (7-17) mg/dL Creatinine 0.67 (0.52-1.04) mg/dL Est GFR (CKD-EPI)AfAm >90 (>60 ml/min/1.73 sqM) Est GFR (CKD-EPI)NonAf >90 (>60 ml/min/1.73 sqM) Glucose 86 (74-99) mg/dL Calcium 9.5 (8.4-10.2) mg/dL Magnesium 1.9 (1.6-2.3) mg/dL Total Bilirubin 0.4 (0.2-1.3) mg/dL AST 27 (14-36) U/L ALT 20 (4-34) U/L Alkaline Phosphatase 70 (38-126) U/L Troponin I (0.000-0.034) ng/mL Total Protein 7.6 (6.3-8.2) g/dL Albumin 4.3 (3.5-5.0) g/dL Lipase 428 H (23-300) U/L 04/26/20 Range/Units 14:58 WBC (3.8-10.6) k/uL RBC (3.80-5.40) m/uL Hgb (11.4-16.0) gm/dL Hct (34.0-46.0) % MCV (80.0-100.0) fL MCH (25.0-35.0) pg MCHC (31.0-37.0) g/dL RDW (11.5-15.5) % Plt Count (150-450) k/uL Neutrophils % % Lymphocytes % % Monocytes % % Eosinophils % % Basophils % % Neutrophils # (1.3-7.7) k/uL Lymphocytes # (1.0-4.8) k/uL Monocytes # (0-1.0) k/uL Eosinophils # (0-0.7) k/uL Basophils # (0-0.2) k/uL PT (9.0-12.0) sec INR (<1.2) APTT (22.0-30.0) sec D-Dimer (<0.60) mg/L FEU Sodium (137-145) mmol/L Potassium (3.5-5.1) mmol/L Chloride (98-107) mmol/L Carbon Dioxide (22-30) mmol/L Anion Gap mmol/L BUN (7-17) mg/dL Creatinine (0.52-1.04) mg/dL Est GFR (CKD-EPI)AfAm (>60 ml/min/1.73 sqM) Est GFR (CKD-EPI)NonAf (>60 ml/min/1.73 sqM) Glucose (74-99) mg/dL Calcium (8.4-10.2) mg/dL Magnesium (1.6-2.3) mg/dL Total Bilirubin (0.2-1.3) mg/dL AST (14-36) U/L ALT (4-34) U/L Alkaline Phosphatase (38-126) U/L Troponin I <0.012 (0.000-0.034) ng/mL Total Protein (6.3-8.2) g/dL Albumin (3.5-5.0) g/dL Lipase (23-300) U/L Disposition Clinical Impression: Atypical chest pain, Chest wall syndrome Disposition: HOME SELF-CARE Condition: Good Instructions (If sedation given, give patient instructions): Costochondritis (ED), Chest Pain (ED) Additional Instructions: Please take Motrin for pain. Make sure to eat something while taking this as it can cause stomach problems. Please follow-up with your doctor to repeat your lipase level. If you start to have epigastric pain or nausea vomiting return to the emergency room. Return if you have any other worsening symptoms. Is patient prescribed a controlled substance at d/c from ED?: No Referrals: Bry Colindres MD [STAFF PHYSICIAN] - 1-2 days Time of Disposition: 16:14
[2020-04-26 15:10] VITALS: RESP 18
[2020-04-26 15:15] LABS: Basophils % (A) 1 %; Eosinophils # (A) 0.1 k/uL (0-0.7); Eosinophils % (A) 3 %; HCT 39.6 % (34.0-46.0); HGB 12.2 gm/dL (11.4-16.0); Lymphocytes # (A) 1.8 k/uL (1.0-4.8); Lymphocytes % (A) 44 %; MCH 27.8 pg (25.0-35.0); MCHC 30.7 g/dL (31.0-37.0); MCV 90.5 fL (80.0-100.0); Mean Platelet Volume 7.6; Monocytes # (A) 0.2 k/uL (0-1.0); Monocytes % (A) 4 %; Neutrophils # (A) 1.9 k/uL (1.3-7.7); Neutrophils % (A) 47 %; Platelet Count 244 k/uL (150-450); RBC 4.37 m/uL (3.80-5.40); RDW 13.2 % (11.5-15.5)
[2020-04-26 15:19] LABS: ALT 20 U/L (4-34); AST 27 U/L (14-36); African American GFR (CKD) >90 (>60 ml/min/1.73 sqM); Albumin 4.3 g/dL (3.5-5.0); Alkaline Phosphatase 70 U/L (38-126); Anion Gap 5 mmol/L; Blood Urea Nitrogen 13 mg/dL (7-17); Calcium 9.5 mg/dL (8.4-10.2); Carbon Dioxide 27 mmol/L (22-30); Chloride 105 mmol/L (98-107); Glucose 86 mg/dL (74-99); Magnesium 1.9 mg/dL (1.6-2.3); Non-African American GFR(CKD) >90 (>60 ml/min/1.73 sqM); Potassium 4.1 mmol/L (3.5-5.1); Sodium 137 mmol/L (137-145); Total Bilirubin 0.4 mg/dL (0.2-1.3); Total Protein 7.6 g/dL (6.3-8.2)
[2020-04-26 15:28] LABS: D-Dimer <0.17 mg/L FEU (<0.60); Partial Thromboplastin Time 23.5 sec (22.0-30.0); Prothrombin Time 10.4 sec (9.0-12.0)
--- NOTE | 2020-04-26 15:41 | XR ---
EXAMINATION TYPE: XR chest 2V DATE OF EXAM: 04/26/2020 COMPARISON: NONE HISTORY: Chest pain and shortness of breath for 2 days. TECHNIQUE: Frontal and lateral views of the chest are obtained. FINDINGS: Overlying EKG leads are present. There is no focal air space opacity, pleural effusion, or pneumothorax seen. The cardiac silhouette size is within normal limits. The osseous structures are intact. IMPRESSION: No acute cardiopulmonary process.
[2020-04-26 16:33] VITALS: BP 119/86; PULSE 56
== END 2020-04-26 16:25 | disposition home or self-care (01) ==
LOC: EC 14:24
DX: R07.1 Chest pain on breathing (principal); R07.89 Other chest pain; R74.8 Abnormal levels of other serum enzymes; Z91.040 Latex allergy status; Z86.79 Personal history of other diseases of the circulatory system
CPT/HCPCS: 36415; 93005; 85379; 80053; 83690; 83735; 84484; 85025; 85610; 85730; 71046; 99284; 96374; J1885

== ENCOUNTER 2022-09-19 23:55 | Emergency (ER) | payer OTHER ==
[2022-09-20 00:26] VITALS: TEMP 98
[2022-09-20] MEDS ORDERED: ASPIRIN 81 MG PO STA (00:52)
[2022-09-20] MEDS ORDERED: NITROGLYCERIN SL TABS 0.4 MG TAB SUBLINGUAL STA (00:52)
--- NOTE | 2022-09-20 00:54 | ED ---
General Adult HPI - General Chief complaint: Chest Pain Stated complaint: Chest Pain Time Seen by Provider: 09/20/22 00:27 Source: patient Mode of arrival: ambulatory Limitations: no limitations - History of Present Illness Initial comments: Dictation was produced using [employer] dictation software. please excuse any grammatical, word or spelling errors. Chief Complaint: 42-year-old female presents emergency department for chest pressure History of Present Illness: 42-year-old female she reports significant family history of cardiac disease. She presents with 2 weeks of intermittent episodes of chest pressure. States roots to the left jaw. No associated diaphoresis or nausea. Patient does not have any past medical history. States that her mother and both grandparents have had cardiac disease discovered in their 50s. Patient does report mild active pain at the bedside., Shortness of breath. Pain is not reproducible with deep inspiration or any sort of movement. The ROS documented in this emergency department record has been reviewed and confirmed by me. Those systems with pertinent positive or negative responses have been documented in the HPI. All other systems are other negative and/or noncontributory. PHYSICAL EXAM: General Impression: Alert and oriented x3, not in acute distress HEENT: Normocephalic atraumatic, extra-ocular movements intact, pupils equal and reactive to light bilaterally, mucous membranes moist. Cardiovascular: Heart regular rate and rhythm Chest: Able to complete full sentences, no retractions, no tachypnea Abdomen: abdomen soft, non-tender, non-distended, no organomegaly Musculoskeletal: Pulses present and equal in all extremities, no peripheral edema Motor: no focal deficits noted Neurological: CN II-XII grossly intact, no focal motor or sensory deficits noted Skin: Intact with no visualized rashes Psych: Normal affect and mood ED course: 42-year-old well-appearing female presents emergency department for atypical chest pain typical features. She does have some risk factors. EKG on arrival was outside signs of ischemia or infarction. Nursing notes and chart review was performed EKG interpreted by me: Ventricular rate 50, sinus bradycardia, SD interval 126, QRS 85, QTC 35. No SD prolongation, no QTC prolongation, no ST or T-wave changes noted. Overall, this EKG is unremarkable Was pt. sent in by a medical professional or institution (, PA, TOWER EQUIPMENT REPAIRER, urgent care, hospital, or fdc...) When possible be specific @ -No Did you speak to anyone other than the patient for history (EMS, parent, family, police, friend...)? What history was obtained from this source @ -No Did you review nursing and triage notes (agree or disagree)? Why? @ -I reviewed and agree with nursing and triage notes Were old charts reviewed (outside hosp., previous admission, EMS record, old EKG, old radiological studies, urgent care reports/EKG's, fdc records)? Report findings @ -No old charts were reviewed Differential Diagnosis (chest pain, altered mental status, abdominal pain women, abdominal pain men, vaginal bleeding, musculoskeletal, weakness, fever, dyspnea, syncope, headache, dizziness, GI bleed, back pain, seizure, CVA, palpatations, mental health)? @ -Differential Chest Pain: Stable Angina, Unstable Angina, STEMI, NSTEMI Aortic Dissection, Pneumothorax, Musculoskeletal, Esophageal Spasm GERD, Cholecystitis, Pancreatitis, Zoster, this is not meant to be an all-inclusive list. EKG interpreted by me (3pts min.). @ -See above X-rays interpreted by me (1pt min.). @ -Nonacute CT interpreted by me (1pt min.). @ -None done U/S interpreted by me (1pt. min.). @ -None done What testing was considered but not performed or refused? (CT, X-rays, U/S, labs)? Why? @ -no What meds were considered but not given or refused? Why? @ -no Did you discuss the management of the patient with other professionals (professionals i.e. , PA, TOWER EQUIPMENT REPAIRER, lab, RT, psych nurse, social work specialist, x ray physician, teacher, ethics officer, watch case polisher)? Give summary @ -no Was smoking cessation discussed for >3mins.? @ -No Was critical care preformed (if so, how long)? @ -No Were there social determinants of health that impacted care today? How? (Homelessness, low income, unemployed, alcoholism, drug addiction, transportation, low edu. Level, literacy, decrease access to med. care, shelter, rehab)? @ -No Was there de-escalation of care discussed even if they declined (Discuss DNR or withdrawal of care, Hospice)? DNR status @ -No What co-morbidities impacted this encounter? (DM, HTN, Smoking, COPD, CAD, Cancer, CVA, ARF, Chemo, Hep., AIDS, mental health diagnosis, sleep apnea, morbid obesity)? @ -None Was patient admitted / discharged? Hospital course, mention meds given and route, prescriptions, significant lab abnormalities, going to OR and other pertinent info. @ -42-year-old female presents emergency department with atypical chest pain typical features. Patient's only risk factor is family history. Disposition options were discussed with patient. She did not want to be admitted for observation for cardiac monitoring and cartilage consultation. She was agreeable for serial troponins. 2 troponins are negative. Rest of labs unremarkable. Chest x-rays unremarkable. Observed in emergency department for 5 hours. Reevaluated bedside at 5:15 AM. Patient's well-appearing. Patient be discharge. Advised follow-up with her doctor. Undiagnosed new problem with uncertain prognosis? @ -No Drug Therapy requiring intensive monitoring for toxicity (Heparin, Nitro, Insulin, Cardizem)? @ -No Were any procedures done? @ -No Diagnosis/symptom? Acute, or Chronic, or Acute on Chronic? Uncomplicated (without systemic symptoms) or Complicated (systemic symptoms)? @ -1. Acute chest pain Side effects of treatment? @ -No Exacerbation, Progression, or Severe Exacerbation? @ -No Poses a threat to life or bodily function? How? (Chest pain, [place], [place], pneumonia, PE, COPD, DKA, ARF, appy, cholecystitis, CVA, Diverticulitis, Homicidal, Suicidal, threat to staff... and all critical care pts) @ -No - Related Data Home Medications Medication Instructions Recorded Confirmed No Known Home Medications 04/26/20 04/26/20 Allergies Allergy/AdvReac Type Severity Reaction Status Date / Time latex Allergy Rash/Hives Verified 04/26/20 15:55 Review of Systems ROS Statement: Those systems with pertinent positive or pertinent negative responses have been documented in the HPI. ROS Other: All systems not noted in ROS Statement are negative. Past Medical History Additional Past Medical History / Comment(s): heart murmur History of Any Multi-Drug Resistant Organisms: None Reported Past Surgical History: Tubal Ligation Past Psychological History: No Psychological Hx Reported Smoking Status: Never smoker Past Alcohol Use History: Occasional Past Drug Use History: Marijuana General Exam Limitations: no limitations Course Vital Signs 09/20/22 09/20/22 09/20/22 00:22 01:53 05:11 Temperature 98.0 F Pulse Rate 77 55 L 52 L Respiratory 14 16 16 Rate Blood Pressure 104/62 126/85 101/57 O2 Sat by Pulse 98 98 98 Oximetry Medical Decision Making - Medical Decision Making Return precautions discussed. Patient will be discharged. - Lab Data Result diagrams: 09/20/22 01:10 09/20/22 01:10 Lab Results 09/20/22 09/20/22 09/20/22 Range/Units 01:10 01:10 01:10 WBC 5.0 (3.8-10.6) k/uL RBC 4.39 (3.80-5.40) m/uL Hgb 12.4 (11.4-16.0) gm/dL Hct 38.7 (34.0-46.0) % MCV 88.1 (80.0-100.0) fL MCH 28.3 (25.0-35.0) pg MCHC 32.1 (31.0-37.0) g/dL RDW 13.4 (11.5-15.5) % Plt Count 226 (150-450) k/uL MPV 7.9 Neutrophils % 45 % Lymphocytes % 46 % Monocytes % 5 % Eosinophils % 3 % Basophils % 1 % Neutrophils # 2.2 (1.3-7.7) k/uL Lymphocytes # 2.3 (1.0-4.8) k/uL Monocytes # 0.2 (0-1.0) k/uL Eosinophils # 0.1 (0-0.7) k/uL Basophils # 0.0 (0-0.2) k/uL PT 10.4 (9.0-12.0) sec INR 1.0 (<1.2) APTT 25.5 (22.0-30.0) sec Sodium 136 L (137-145) mmol/L Potassium 4.9 (3.5-5.1) mmol/L Chloride 107 (98-107) mmol/L Carbon Dioxide 25 (22-30) mmol/L Anion Gap 4 mmol/L BUN 16 (7-17) mg/dL Creatinine 0.67 (0.52-1.04) mg/dL Est GFR (CKD-EPI)AfAm >90 (>60 ml/min/1.73 sqM) Est GFR (CKD-EPI)NonAf >90 (>60 ml/min/1.73 sqM) Glucose 91 (74-99) mg/dL Calcium 9.1 (8.4-10.2) mg/dL Magnesium 2.0 (1.6-2.3) mg/dL Total Bilirubin 0.1 L (0.2-1.3) mg/dL AST 22 (14-36) U/L ALT 21 (4-34) U/L Alkaline Phosphatase 70 (38-126) U/L Troponin I (0.000-0.034) ng/mL Total Protein 6.6 (6.3-8.2) g/dL Albumin 4.0 (3.5-5.0) g/dL HCG, Quant <2.4 mIU/mL 09/20/22 09/20/22 Range/Units 01:10 04:09 WBC (3.8-10.6) k/uL RBC (3.80-5.40) m/uL Hgb (11.4-16.0) gm/dL Hct (34.0-46.0) % MCV (80.0-100.0) fL MCH (25.0-35.0) pg MCHC (31.0-37.0) g/dL RDW (11.5-15.5) % Plt Count (150-450) k/uL MPV Neutrophils % % Lymphocytes % % Monocytes % % Eosinophils % % Basophils % % Neutrophils # (1.3-7.7) k/uL Lymphocytes # (1.0-4.8) k/uL Monocytes # (0-1.0) k/uL Eosinophils # (0-0.7) k/uL Basophils # (0-0.2) k/uL PT (9.0-12.0) sec INR (<1.2) APTT (22.0-30.0) sec Sodium (137-145) mmol/L Potassium (3.5-5.1) mmol/L Chloride (98-107) mmol/L Carbon Dioxide (22-30) mmol/L Anion Gap mmol/L BUN (7-17) mg/dL Creatinine (0.52-1.04) mg/dL Est GFR (CKD-EPI)AfAm (>60 ml/min/1.73 sqM) Est GFR (CKD-EPI)NonAf (>60 ml/min/1.73 sqM) Glucose (74-99) mg/dL Calcium (8.4-10.2) mg/dL Magnesium (1.6-2.3) mg/dL Total Bilirubin (0.2-1.3) mg/dL AST (14-36) U/L ALT (4-34) U/L Alkaline Phosphatase (38-126) U/L Troponin I <0.012 <0.012 (0.000-0.034) ng/mL Total Protein (6.3-8.2) g/dL Albumin (3.5-5.0) g/dL HCG, Quant mIU/mL Disposition Clinical Impression: Chest pain Disposition: HOME SELF-CARE Condition: Good Instructions (If sedation given, give patient instructions): Chest Pain (ED) Is patient prescribed a controlled substance at d/c from ED?: No Referrals: None,Stated [REFERRING] - 1-2 days Time of Disposition: 05:16
[2022-09-20 01:30] LABS: Basophils % (A) 1 %; Eosinophils # (A) 0.1 k/uL (0-0.7); Eosinophils % (A) 3 %; HCT 38.7 % (34.0-46.0); HGB 12.4 gm/dL (11.4-16.0); Lymphocytes # (A) 2.3 k/uL (1.0-4.8); Lymphocytes % (A) 46 %; MCH 28.3 pg (25.0-35.0); MCHC 32.1 g/dL (31.0-37.0); MCV 88.1 fL (80.0-100.0); Mean Platelet Volume 7.9; Monocytes # (A) 0.2 k/uL (0-1.0); Monocytes % (A) 5 %; Neutrophils # (A) 2.2 k/uL (1.3-7.7); Neutrophils % (A) 45 %; Platelet Count 226 k/uL (150-450); RBC 4.39 m/uL (3.80-5.40); RDW 13.4 % (11.5-15.5)
[2022-09-20 01:44] LABS: ALT 21 U/L (4-34); AST 22 U/L (14-36); African American GFR (CKD) >90 (>60 ml/min/1.73 sqM); Alkaline Phosphatase 70 U/L (38-126); Anion Gap 4 mmol/L; Blood Urea Nitrogen 16 mg/dL (7-17); Calcium 9.1 mg/dL (8.4-10.2); Carbon Dioxide 25 mmol/L (22-30); Chloride 107 mmol/L (98-107); Glucose 91 mg/dL (74-99); Non-African American GFR(CKD) >90 (>60 ml/min/1.73 sqM); Potassium 4.9 mmol/L (3.5-5.1); Sodium 136 mmol/L (137-145); Total Bilirubin 0.1 mg/dL (0.2-1.3); Total Protein 6.6 g/dL (6.3-8.2)
--- NOTE | 2022-09-20 01:50 | XR ---
EXAMINATION TYPE: XR chest 2V DATE OF EXAM: 09/20/2022 COMPARISON: 04/26/2020 HISTORY: Chest pain TECHNIQUE: FINDINGS: Heart and mediastinum are normal. Lungs are clear. Diaphragm is normal. Bony thorax appears normal. IMPRESSION: Normal chest. No change.
[2022-09-20 01:54] VITALS: RESP 16
[2022-09-20 01:58] LABS: Partial Thromboplastin Time 25.5 sec (22.0-30.0); Prothrombin Time 10.4 sec (9.0-12.0)
[2022-09-20 02:33] LABS: HCG,Quantitative Serum <2.4 mIU/mL
[2022-09-20 05:13] VITALS: BP 101/57; PULSE 52
== END 2022-09-20 05:31 | disposition home or self-care (01) ==
LOC: EC 23:55
DX: R07.89 Other chest pain (principal); F12.90 Cannabis use, unspecified, uncomplicated; Z98.51 Tubal ligation status; Z91.040 Latex allergy status
CPT/HCPCS: 36415; 71046; 80053; 83735; 84484; 84702; 85025; 85610; 85730; 93005; 99283